=== PATIENT | female | born 1965 | race Caucasian/White ===

== ENCOUNTER → 2017-10-16 | Emergency (ER) | payer MEDICAID ==
[~2017-10-16] VITALS: Ht 167.6 cm; Wt 59.2 kg
[~2017-10-16] MED LIST: IPRA4AER IH; PRED50TA PO; TIOT18CA3 INH
[2017-10-16 14:48] VITALS: BP 124/102
[2017-10-16 15:38] LABS: BASOPHILS % (AUTO) 0.4 % (0-1); EOSINOPHILS # (AUTO) 0.1 X10'3 (0-0.9); EOSINOPHILS % (AUTO) 2.3 % (0-6); HEMATOCRIT 38.6 % (35.0-45.0); HEMOGLOBIN 12.9 g/dl (12.0-16.0); LYMPHOCYTES % (AUTO) 35.3 % (21-51); MEAN CORPUSCULAR HEMOGLOBIN 31.5 PG (27.0-31.0); MEAN CORPUSCULAR HGB CONC 33.4 % (33.0-36.5); MEAN CORPUSCULAR VOLUME 94.3 FL (78-98); MEAN PLATELET VOLUME 9.1 FL (7.4-10.4); MONOCYTES # (AUTO) 0.4 X10'3 (0-0.9); MONOCYTES % (AUTO) 6.4 % (2-12); NEUTROPHILS # (AUTO) 3.1 X10'3 (1.8-7.7); NEUTROPHILS % (AUTO) 55.6 % (42-75); PLATELET COUNT 208 X10'3 (140-440); WHITE BLOOD COUNT 5.6 X10'3 (4.5-11.0)
[2017-10-16 15:53] LABS: ALANINE AMINOTRANSFERASE 45 U/L (12-78); ALBUMIN 3.5 G/DL (3.4-5.0); ALBUMIN/GLOBULIN RATIO 1.1 (1.1-1.5); ALKALINE PHOSPHATASE 56 IU/L (46-116); ANION GAP 7 (8-16); ASPARTATE AMINO TRANSFERASE 18 U/L (10-37); BILIRUBIN,TOTAL 0.3 MG/DL (0.1-1.0); BLOOD UREA NITROGEN 11 MG/DL (7-18); BUN/CREATININE RATIO 15.7 (6.6-38.0); CALCIUM 8.8 MG/DL (8.5-10.1); CHLORIDE 105 MMOL/L (99-107); GLUCOSE 102 MG/DL (70-104); SODIUM 142 MMOL/L (135-145); TOTAL CARBON DIOXIDE 30.1 MMOL/L (24-32); TOTAL PROTEIN 6.6 G/DL (6.4-8.2); eGFR 88 ML/MIN
[2017-10-16 16:42] LABS: CLARITY,URINE Clear (Clear); GLUCOSE, URINE Negative (Neg); KETONES,URINE Negative (Neg); LEUKOCYTE ESTERASE ,URINE Trace (Neg); NITRITES, URINE Negative (Neg); OCCULT BLOOD,URINE Negative (Neg); PH,URINE 8.5 (4.8-8.0); PROTEIN,URINE Negative (Neg)
[2017-10-16 16:44] LABS: COLOR,URINE STRAW (Yellow); UA COLLECTION TYPE CLN CATCH MIDSTREAM
[2017-10-16 16:47] LABS: BACTERIA,URINE FEW /HPF (Neg); RBC,URINE 0-2 /HPF (0-2); SQUAMOUS EPITHELIAL CELL,UR FEW /LPF (FEW); WBC,URINE 0-4 /HPF (0-4)
[2017-10-20 11:26] LABS: OCCULT BLOOD STOOL NEGATIVE (Neg)
== END | disposition home or self-care (01) ==
LOC: ER 14:23
DX: K62.3 Rectal prolapse (principal); J44.9 Chronic obstructive pulmonary disease, unspecified; G89.29 Other chronic pain; F15.10 Other stimulant abuse, uncomplicated; Z88.2 Allergy status to sulfonamides; Z59.0 Homelessness; Z79.899 Other long term (current) drug therapy; Z56.0 Unemployment, unspecified
CPT/HCPCS: 36415; 80053; 81001; 82272; 85025; 85610; 87088; 99284; A6449

== ENCOUNTER 2017-11-11 10:11 | Emergency (ER) | payer MEDICAID ==
[~2017-11-11] VITALS: Ht 167.6 cm; Wt 52.3 kg
[2017-11-11] MEDS ORDERED: ipratropium/albuterol 3ml nebule NEB ONE ×2 (11:20→11:45)
[2017-11-11] MEDS ORDERED: predniSONE 20 mg tablet PO ONE (11:20)
[2017-11-11] MEDS ORDERED: TIOT18CA3 INH (11:52)
[2017-11-11] MEDS ORDERED: ALBU8.5H8 INH (11:52)
[2017-11-11] MEDS ORDERED: DOXY100C43 PO (11:52)
[2017-11-11] MEDS ORDERED: IPRA4AER IH (11:52)
[2017-11-11] MEDS ORDERED: PRED50TA PO (11:52)
[2017-11-11 13:20] VITALS: BP 136/61
== END 2017-11-11 13:27 | disposition home or self-care (01) ==
LOC: ER 10:11
DX: J44.1 Chronic obstructive pulmonary disease with (acute) exacerbation (principal); G89.29 Other chronic pain; F17.210 Nicotine dependence, cigarettes, uncomplicated; F15.10 Other stimulant abuse, uncomplicated; Z76.0 Encounter for issue of repeat prescription; Z59.0 Homelessness; Z56.0 Unemployment, unspecified; Z88.2 Allergy status to sulfonamides; Z79.899 Other long term (current) drug therapy; Z60.2 Problems related to living alone
CPT/HCPCS: 71046; 94640; 94760; 99284; J7512

== ENCOUNTER 2022-03-08 14:12 | Emergency (ER) | payer MEDICAID ==
[~2022-03-08] VITALS: Ht 171.4 cm; Wt 70.5 kg
[~2022-03-08 14:12] MED LIST changes: +ALBU8.5H17 INH
[2022-03-08 14:32] VITALS: BP 123/71
[2022-03-08] MEDS ORDERED: ibuprofen 200mg tablet PO ONE (14:40)
== END 2022-03-09 07:31 | disposition home or self-care (01) ==
LOC: ER 14:13
DX: S62.304A Unspecified fracture of fourth metacarpal bone, right hand, initial encounter for closed fracture (principal); J44.9 Chronic obstructive pulmonary disease, unspecified; G89.29 Other chronic pain; F41.9 Anxiety disorder, unspecified; F31.9 Bipolar disorder, unspecified; Z59.00 Homelessness unspecified; W22.8XXA Striking against or struck by other objects, initial encounter; Y93.89 Activity, other specified; Y92.89 Other specified places as the place of occurrence of the external cause; Y99.8 Other external cause status; Z56.0 Unemployment, unspecified
CPT/HCPCS: 73630; 99283